=== PATIENT | male | born 1965 | race Caucasian/White ===

== ENCOUNTER 2021-12-14 10:02 | Emergency (ER) | payer OTHER, SELFPAY ==
--- NOTE | 2021-12-14 10:09 | ED.URI ---
HPI - URI/Sore Throat General Chief Complaint: Upper Respiratory Infection Stated Complaint: nasal drainage with color,headache Time Seen by Provider: 12/14/21 10:20 Source: patient Mode of arrival: ambulatory Limitations: no limitations History of Present Illness HPI Narrative: Mr. Kline is a 56-year-old male patient presenting to the clinic today with complaints of nasal congestion and a headache x3 days. He reports he is blowing out some green nasal drainage and has a headache. He denies any fever or chills. He denies any known exposure but with COVID, flu, or influenza MD elicited complaint: nasal congestion and other (Headache) Related Data Home Medications Medication Instructions Recorded Confirmed finasteride 5 mg tablet 5 tablet DAILY 12/14/21 12/14/21 Allergies Allergy/AdvReac Type Severity Reaction Status Date / Time PCN Allergy Mild Hives Uncoded 12/14/21 10:23 Review of Systems Review of Systems: Pertinent positives per HPI. Patient denies any fever, chills, rash, headache, visual changes, dizziness, cough, sore throat, shortness of breath, chest pain, palpitations, nausea, vomiting, diarrhea, constipation, abdominal pain, or any urinary issues. [facility] Family History Family History Mother Patient's mother is in good health Sibling Patient's sister is in good health Patient's brother is in good health Father Family history of heart disease in male family member before age 55, Onset Age: 74 Patient's father is Family history of cardiovascular disease Social History Social History Smoking status: Never smoker Alcohol intake: current Exam Narrative: General: Well-developed, well nourished, in no apparent distress Head: Normocephalic, atraumatic Eyes: Pupils equally round and reactive to light bilaterally, EOM intact, sclera and conjunctive clear, no discharge, lids normal Ears: TMs intact and clear, ear canals ceruminous, no drainage, grossly hearing normal. Nose: Nares patent, clear nasal discharge, mild inflammation, no sinus tenderness. Mouth: Oropharynx without lesions or masses, good dentition, MMM. Neck: Supple, trachea midline, no enlargement of anterior or posterior cervical nodes, no thyroid masses or goiter palpable. Cardio: Regular rate and rhythm, s1 and s2 normal, no murmur appreciated. Resp: Clear to auscultation bilaterally anteriorly and posteriorly, no rhonchi, rales, wheezing or rubs Course Course Emergency Course: This electronic medical record has been dictated using [employer] voice recognition software and may contain grammatical errors. Level of Care: Express Care Visit Vital Signs Vital signs: Vital Signs Temperature 36.4 C 12/14/21 10:19 Pulse Rate 69 12/14/21 10:19 Respiratory Rate 18 12/14/21 10:19 Blood Pressure 130/76 12/14/21 10:19 Pulse Oximetry 99 12/14/21 10:19 Oxygen Delivery Room Air 12/14/21 10:19 Temperature 36.4 C 12/14/21 10:19 Pulse Rate 69 12/14/21 10:19 Respiratory Rate 18 12/14/21 10:19 Blood Pressure 130/76 12/14/21 10:19 Pulse Oximetry 99 12/14/21 10:19 Oxygen Delivery Room Air 12/14/21 10:19 Vital signs reviewed MDM - URI/Sore Throat MDM Narrative Medical decision making narrative: At the time of visit patient is resting comfortably on the exam table. He reports that he has been having sinus pressure and green nasal drainage x3 days. I suspect the patient has an upper respiratory infection and discussed to treat options and supportive measures and he voiced understanding charge instructions. Differential Diagnosis Differential diagnosis: Likely upper respiratory infection, otitis media, sinusitis, viral infection, bronchitis, influenza and pharyngitis Discharge Plan Discharge Clinical Impression: Upper respiratory infection Qualifiers: URI type:
[2021-12-14 10:19] VITALS: BP 130/76; PULSE 69; RESP 18; TEMP 36.4; O2SAT 99
== END 2021-12-14 10:28 | disposition home or self-care (01) ==
PROVIDERS: Emergency Provider Nurse Practitioner Family; PCP Family Medicine
DX: J06.9 Acute upper respiratory infection, unspecified (principal)
CPT/HCPCS: 99211; G0463

== ENCOUNTER 2022-10-30 09:05 | Emergency (ER) | payer OTHER, SELFPAY ==
--- NOTE | 2022-10-30 09:14 | ED.EYEPROB ---
HPI - Eye Problem General Chief complaint: Eye Problems Stated complaint: right eye pain Time Seen by Provider: 10/30/22 09:54 Source: patient and RN notes reviewed Mode of arrival: ambulatory Limitations: no limitations History of Present Illness HPI Narrative: 57-year-old male presents with concern for foreign body in his right eye. He reports he worked outside yesterday but did not notice any problems with his eye. 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 He reports he woke up in the middle night felt something in his eye, he tried to rinse it out without success chief complaint: foreign body Related Data Home Medications Medication Instructions Recorded Confirmed finasteride 5 mg tablet 5 tablet DAILY 12/14/21 10/30/22 Allergies Allergy/AdvReac Type Severity Reaction Status Date / Time PCN Allergy Mild Hives Uncoded 10/30/22 09:11 Review of Systems Review of Systems: CONSTITUTIONAL: Denies malaise, chills, sweats, or fever. EYES: Denies visual changes. Reports right eye foreign body sensation, irritation, watery discharge. ENT: Denies rhinorrhea, congestion, sinus pain, otalgia or sore throat. SKIN: Denies rash or itching. NEUROLOGIC: Denies numbness, weakness, or headache. PSYCHIATRIC: Denies anxiety or depression. All systems reviewed & are unremarkable except as noted in HPI and below PMFSH Family History Family History Mother Patient's mother is in good health Sibling Patient's sister is in good health Patient's brother is in good health Father Family history of heart disease in male family member before age 55, Onset Age: 74 Patient's father is Family history of cardiovascular disease Social History Social History Smoking status: Never smoker Alcohol intake: current Comments At time of signature, agree with nursing past medical, surgical, social and family history. There is no relevant family history pertinent to the presenting complaint Exam Narrative: GENERAL: Well-appearing, well-nourished, and in no acute distress. HEAD: Normocephalic, atraumatic. EYES: PERRLA and EOMI. No nystagmus. Bilateral conjunctivae and sclera clear. Small black foreign body noted in the right upper eyelid. Left upper and lower eyelid unremarkable, no periorbital edema noted ENT: Nares clear, turbinates pink, no rhinorrhea or epistaxis. Mucous membranes moist. TM pearly kwong with sharp light reflex bilaterally; no tragal tenderness. NECK: Supple. CHEST: No respiratory distress. Speaks in full sentences. HEART: Regular rate and rhythm. SKIN: Warm, dry, no visible rash. NEURO: Alert and oriented x3. PSYCH: Normal mood and affect Course Course Emergency Course: Patient is aware of diagnosis, understands and agrees to treatment plan. Anticipatory guidance given. Patient agrees to follow-up as directed and is aware of reasons to seek care at the emergency department. Portions of this record may have been created with voice recognition software Level of Care: Express Care Visit Vital Signs Vital signs: Reviewed. Procedures FB Removal Eye Foreign Body #1: Foreign Body Removal Date: 10/30/22 Foreign Body Removal Time: 09:48 Time Out performed: Yes Location: eye (R) Topical anesthetic used: tetracaine Foreign body: wood Evidence of corneal penetration: No Technique: irrigation Procedure performed under: direct visualization with magnification Patient tolerated procedure: well Other Procedure Procedure 1: Other Procedure: Tetracaine 1 gtt instilled in right eye, fluorescein stain applied. No corneal abrasion noted upon garcia lamp exam. Foreign body noted in the upper eyelid. Eye washed with NS 100 ml. No Williams sign noted. MDM - Eye Problem MDM Narrative
[2022-10-30 09:22] VITALS: BP 156/84; PULSE 52; RESP 16; TEMP 35.9; O2SAT 99
== END 2022-10-30 09:56 | disposition home or self-care (01) ==
PROVIDERS: Emergency Provider Nurse Practitioner; PCP Family Medicine
DX: T15.91XA Foreign body on external eye, part unspecified, right eye, initial encounter (principal); X58.XXXA Exposure to other specified factors, initial encounter
CPT/HCPCS: 99213; A9270; G0463

== ENCOUNTER 2023-06-23 02:19 | Day surgery (SDC) | payer OTHER, SELFPAY ==
[2023-06-07 12:06] VITALS: BMI 32.8
--- NOTE | 2023-06-21 09:40 | SUR.PREOP ---
Patient called regarding upcoming procedure. No answer- message left with arrival time.
[2023-06-23 06:46] VITALS: BP 137/84; PULSE 63; RESP 20; TEMP 36.6; O2SAT 97; BMI 33.2
[2023-06-23] MEDS: LACTATED RINGERS 1,000 ML 150 ML IV CONT (06:52)
--- NOTE | 2023-06-23 07:25 | PM.HPGS ---
History of Present Illness History of Present Illness Consent: Risks, benefits, and alternatives have been discussed and questions answered. Patient agrees to proceed with procedure. Chief complaint: neoplasm screening Narrative: Wan Kline is a 58 year old male Presents for screening colonoscopy. Patient's current weight appetite and bowel movements are normal. Patient denies abdominal pain. He has had no bleeding. Family history is noncontributory. Review of Systems Review of Systems: Review of systems noncontributory. 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 BMI 34.0-34.9,adult BPH (benign prostatic hyperplasia) Carpal tunnel syndrome on right Low kidney function Screen for colon cancer Screening for lipid disorders Syncope Umbilical hernia Family History Family History Mother Patient's mother is in good health Sepsis Diabetes mellitus Pacemaker Sibling Patient's sister is in good health Patient's brother is in good health Thyroid activity decreased Enlarged prostate Father Family history of heart disease in male family member before age 55, Onset Age: 74 Patient's father is Family history of cardiovascular disease Cancer Social History Social History (Updated 03/09/23 @ 09:09 by ARNOLDO Rose) Smoking status: Former smoker Tobacco type: cigarettes Second hand tobacco smoke exposure: Yes Additional smoking assessment comments: FORMER SMOKER VERY LIGHT 1PK/MO- 10 YRS Alcohol intake: current Drinks per week: 2 Alcohol use details: drinks Substance use: former Substance use type: does not use Lack of Transportation: No Lack of Food: Never True Current Housing: I Have Housing Concerned About Future Housing: No Difficulty Paying Gas/Electric Bills: No Difficulty Paying for Meds: No Currently Unemployed: No Education: High School Diploma/GED Difficulty w/ Childcare or Family Care: No Living arrangements: with family Occupation/Education: occupation 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 Gender identity (if verbalized by the patient): Male Spiritual care concerns: No Meds Home Medications and Allergies Home Medications Medication Instructions Recorded Confirmed Type finasteride 5 mg tablet 5 tablet PO DAILY 12/14/21 06/07/23 History Allergies Allergy/AdvReac Type Severity Reaction Status Date / Time Penicillins AdvReac Intermediate Rash Verified 06/23/23 06:44 Vital Signs Vital Signs - 24 hr 06/23/23 06:46 Temperature 97.9 F Pulse Rate 63 Respiratory Rate 20 Blood Pressure 137/84 Pulse Oximetry 97 Oxygen Delivery Room Air Exam Narrative: Physical exam reveals patient to be alert. Vital signs stable. HEENT exam is unremarkable. Patient is anicteric. Lungs are clear to auscultation and percussion. Heart is without murmur or extra sounds. Abdomen bowel sounds are present soft nontender with no organomegaly. Digital external rectal exam normal. Assessment and Plan Assessment and plan (1) Screen for colon cancer: Code(s): Z12.11 - Encounter for screening for malignant neoplasm of colon Status: Acute Assessment and Plan: Patient presents today for screening colonoscopy. He appears to be at average risk for colon polyps. Further recommendations may be given after endoscopy.
--- NOTE | 2023-06-23 07:42 | WPDANESEPPF ---
Anes - Initial Pre Proc Eval Procedure: Operation Date: 06/23/23 08:00 Proposed Procedures p Screening Colonoscopy - Refugio Cesar MD Date/Time: 06/23/23 07:42 Surgeon: Refugio Cesar MD Pre Op Diagnosis: neoplasm screening Patient Data Age: 58 Gender: M Height: 1.73 m Weight: 99.2 kg Last Vital Signs Temp 97.9 F 06/23/23 06:46 Pulse 63 06/23/23 06:46 Resp 20 06/23/23 06:46 BP 137/84 06/23/23 06:46 Pulse Ox 97 06/23/23 06:46 O2 Del Method Room Air 06/23/23 06:46 Allergies Allergy/AdvReac Type Severity Reaction Status Date / Time Penicillins AdvReac Intermediate Rash Verified 06/23/23 06:44 Home Medications Medication Instructions Recorded Confirmed Type finasteride 5 mg tablet 5 tablet PO DAILY 12/14/21 06/07/23 History Patient hx anesthesia problems: none Family hx anesthesia problems: none Results Review: All pre-operative results and documents have been reviewed as part of the pre-operative evaluation. 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 BMI 34.0-34.9,adult BPH (benign prostatic hyperplasia) Carpal tunnel syndrome on right Low kidney function Screen for colon cancer Screening for lipid disorders Syncope Umbilical hernia Family History Family History Mother Patient's mother is in good health Sepsis Diabetes mellitus Pacemaker Sibling Patient's sister is in good health Patient's brother is in good health Thyroid activity decreased Enlarged prostate Father Family history of heart disease in male family member before age 55, Onset Age: 74 Patient's father is Family history of cardiovascular disease Cancer Social History Social History (Updated 03/09/23 @ 09:09 by ARNOLDO Rose) Smoking status: Former smoker Tobacco type: cigarettes Second hand tobacco smoke exposure: Yes Additional smoking assessment comments: FORMER SMOKER VERY LIGHT 1PK/MO- 10 YRS Alcohol intake: current Drinks per week: 2 Alcohol use details: drinks Substance use: former Substance use type: does not use Lack of Transportation: No Lack of Food: Never True Current Housing: I Have Housing Concerned About Future Housing: No Difficulty Paying Gas/Electric Bills: No Difficulty Paying for Meds: No Currently Unemployed: No Education: High School Diploma/GED Difficulty w/ Childcare or Family Care: No Living arrangements: with family Occupation/Education: occupation 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 Informed Consent: The patient's anesthetic plan and its attendant risks and benefits were discussed with the patient/family/POA. Questions were solicited and answers provided to the satisfaction of the patient/family/POA.
[2023-06-23 08:05] VITALS: BP 113/84; PULSE 62; RESP 16; O2SAT 96
[2023-06-23 08:15] VITALS: BP 102/65; PULSE 62; RESP 14; O2SAT 97
[2023-06-23 08:25] VITALS: BP 127/79; PULSE 60; RESP 14; O2SAT 97
== END 2023-06-23 08:28 | disposition home or self-care (01) ==
PROVIDERS: PCP Family Medicine; Visit Provider Internal Medicine Gastroenterology
PROC: 0DJD8ZZ Inspection of Lower Intestinal Tract, Via Natural or Artificial Opening Endoscopic (ICD-10-PCS; CPT 45378; principal; 2023-06-23 08:00)
DX: Z12.11 Encounter for screening for malignant neoplasm of colon (principal); K64.8 Other hemorrhoids; N40.0 Benign prostatic hyperplasia without lower urinary tract symptoms; E66.9 Obesity, unspecified; Z68.33 Body mass index [BMI] 33.0-33.9, adult; Z87.891 Personal history of nicotine dependence; Z82.49 Family history of ischemic heart disease and other diseases of the circulatory system; Z80.9 Family history of malignant neoplasm, unspecified
CPT/HCPCS: 45378; J2704; J7120

== ENCOUNTER 2024-02-12 16:51 | Outpatient (CLI) | payer OTHER, SELFPAY ==
--- NOTE | ~2024-02-12 | XR_ITS ---
XR hip RT 2V w AP pelvis Ordering provider: Megan Escamilla, PAC History: . M25.551 - Pain in right hip . Comparison: None. FINDINGS: BONES: No acute fracture or dislocation. HIP JOINT SPACES: Osteoarthritic changes of both hips with slight narrowing of the joint spaces. SACROILIAC JOINT SPACES/LUMBAR SPINE: The sacroiliac joint spaces are normal. Mild degenerative castillo es of the visualized lower lumbar spine. PUBIC SYMPHYSIS: Normal. SOFT TISSUES: Normal. IMPRESSION: No acute osseous abnormality pelvis and right hip. Reviewed, dictated and finalized at location A.
== END 2024-02-12 16:52 | disposition home or self-care (01) ==
LOC: ANHIMG 16:52
PROVIDERS: PCP Family Medicine; Visit Provider Physician Assistant Medical
DX: M25.551 Pain in right hip (principal); G89.29 Other chronic pain
CPT/HCPCS: 73502

== ENCOUNTER 2025-01-03 07:52 | Outpatient (CLI) | payer OTHER, SELFPAY | END 2025-01-03 07:53 | disposition home or self-care (01) | LOC: MICIMG 07:52 | PROVIDERS: PCP Family Medicine; Visit Provider Nurse Practitioner Family | DX: M25.562 Pain in left knee (principal) | CPT/HCPCS: 73564 ==